=== PATIENT | female | born 1960 | race Caucasian/White ===

== ENCOUNTER 2016-09-13 19:46 | Inpatient (IN) | payer OTHER ==
[~2016-09-13] VITALS: Ht 162.6 cm; Wt 66.2 kg
[~2016-09-13 19:46] MED LIST: CELE200C PO; DICL100G8 TP; DULO60CA7 PO; ESOM40CA PO; ESTR1PAT79 TD; HYDR-3241 PO; LIDO700A5 TD; ONDA4TAB10 PO; SUMA6PEN SQ; ZOLP10TA PO; [UNRECOGNIZED DRUG - OTHER] TP
[2016-09-13] MEDS ORDERED: PROMETHAZINE 25 MG/ML, 1ML ONE (20:37)
[2016-09-13] MEDS ORDERED: KETOROLAC 30 MG/1 ML ONE (22:55)
[2016-09-14 09:00] VITALS: BP 109/68
[2016-09-14] MEDS: ENOXAPARIN 40 MG/0.4 ML SQ SCH (10:00)
[2016-09-14] MEDS: ONDANSETRON 2MG/ML, 2ML IV SCH ×2 (13:00→19:00)
[2016-09-14] MEDS ORDERED: MORPHINE SULFATE 4 MG/ML, 1ML IV PRN (13:00)
[2016-09-14] MEDS ORDERED: SODIUM CHLORIDE 0.9% 1,000 ML IV SCH (13:00)
[2016-09-14] MEDS ORDERED: HYDROcodone/APAP 5/325 TABLET PO PRN (13:30)
[2016-09-14] MEDS ORDERED: KETOROLAC 30 MG/1 ML ONE (14:44)
[2016-09-14] MEDS: DULOXETINE 30 MG CAPSULE.DR PO SCH ×2 (14:56→21:00)
[2016-09-14] MEDS: KETOROLAC 30 MG/1 ML IV SCH ×2 (15:00→22:15)
[2016-09-14 15:14] VITALS: BP 105/69
[2016-09-14] MEDS ORDERED: ALBUTEROL SULFATE 2.5 MG/3 ML NPPB PRN (16:00)
[2016-09-14] MEDS ORDERED: QUETIAPINE 200 MG TABLET PO SCH (21:00)
[2016-09-14 21:43] VITALS: BP 111/72
[2016-09-14] MEDS ORDERED: OMNIPAQUE 350 MG/ML, 75ML BOTTLE ONE (23:26)
[2016-09-14] MEDS: LORazepam 2 MG/ML, 1ML IV PRN (23:29)
[2016-09-15] MEDS: ONDANSETRON 2MG/ML, 2ML IV SCH (01:00)
[2016-09-15 02:39] VITALS: BP 116/78
[2016-09-15 04:43] LABS: BLOOD UREA NITROGEN 23 mg/dL (7-18)
[2016-09-15] MEDS: KETOROLAC 30 MG/1 ML IV SCH (05:16)
[2016-09-15 08:40] VITALS: BP 116/76
[2016-09-15] MEDS: DULOXETINE 30 MG CAPSULE.DR PO SCH (09:37)
[2016-09-15] MEDS: ENOXAPARIN 40 MG/0.4 ML SQ SCH (09:40)
[2016-09-15] MEDS: LORazepam 2 MG/ML, 1ML IV PRN (09:53)
[2016-09-15] MEDS ORDERED: KETO10TA PO (12:07)
[2016-09-16 12:31] LABS: ABG COLLECTION SITE NOT DOCUMENTED
[2016-09-16 13:01] LABS: ASPARTATE AMINO TRANSFERASE 21 U/L (15-37); BLOOD UREA NITROGEN 15 mg/dL (7-18); IS PT STATUS REG ER OR PRE ER? NO
== END 2016-09-15 14:20 | disposition home or self-care (01) | DRG 103 ==
LOC: ED 19:46 → 3NW 09-14 08:02
PROVIDERS: ADMIT Internal Medicine; ATTEND Internal Medicine
DX: G43.009 Migraine without aura, not intractable, without status migrainosus (principal); M79.7 Fibromyalgia; J45.909 Unspecified asthma, uncomplicated; G89.29 Other chronic pain; M54.9 Dorsalgia, unspecified; Z90.49 Acquired absence of other specified parts of digestive tract; Z82.49 Family history of ischemic heart disease and other diseases of the circulatory system; R09.02 Hypoxemia
CPT/HCPCS: 36415; 36600; 71010; 71260; 80048; 80053; 82248; 82803; 84484; 85025; 85379; 93005; 96374; 96375; J1650; J1885; Q9967; J2060; J7030

== ENCOUNTER → 2020-06-23 | Outpatient (CLI) | payer MEDICARE, OTHER ==
[~2020-06-23] MED LIST changes: +DICL100G19 TP; -DICL100G8 TP; +KETO10TA PO
== END | disposition home or self-care (01) ==
LOC: STAR 11:01
PROVIDERS: ATTEND Anesthesiology
DX: Z01.818 Encounter for other preprocedural examination (principal); Z01.89 Encounter for other specified special examinations; M79.606 Pain in leg, unspecified
CPT/HCPCS: 93005